=== PATIENT | male | born 1980 | race Caucasian/White ===

== ENCOUNTER 2022-03-05 09:26 | Emergency (ER) | payer MEDICAID, SELFPAY ==
--- NOTE | ~2022-03-05 | XR_ITS ---
XR knee RT 3V 03/05/2022 10:07 INDICATION: Knee pain. PROCEDURE: 3 views right knee COMPARISON: No prior studies for comparison. FINDINGS: Fracture, dislocation or subluxation is not identified. No significant joint effusion. The soft tissues appear within normal limits. No foreign bodies are identified. IMPRESSION: 1: NO ACUTE BONE OR JOINT ABNORMALITY IDENTIFIED. Reviewed, dictated and finalized at location A. NT CARE NURSE PRACTITIONER
[2022-03-05 09:44] VITALS: BP 147/98; PULSE 92; RESP 16; TEMP 37.1; O2SAT 100
--- NOTE | 2022-03-05 09:53 | ED.GENADULT ---
HPI - General Adult General Chief complaint: Extremity Injury, Lower Stated complaint: Right Knee,Leg,Ankle Pain Source: patient Mode of arrival: ambulatory Limitations: no limitations History of Present Illness HPI narrative: Patient presents for evaluation of pain, swelling, redness in the right lower extremity. He indicates his right knee was punctured by a screw approximately 2 weeks ago when he kneeled down while working. He states that the screw did puncture his skin. He did not have considerable pain or swelling at that time. Two days ago he woke up and noted swelling in the anterior aspect of the right knee without considerable pain. He has noted warmth in right knee and redness in anterior aspect of right lower leg. He does have some mild pain in his right heel when walking and also in anterior aspect of right lower leg. He denies any calf redness, swelling or pain. No personal or family hx of DVT. He believes his last tetanus shot was approximately five years ago. He rates pain in anterior aspect of right lower leg as 1-2 in severity. He took ibuprofen 800mg without considerable improvement thereafter. His father has had gout in past however pt has not. No fever, chills, nausea, vomiting. Related Data Home Medications Medication Instructions Recorded Confirmed No Home Medications 03/05/22 03/05/22 Allergies Allergy/AdvReac Type Severity Reaction Status Date / Time No Known Allergies Allergy Verified 03/05/22 09:43 Review of Systems Review of Systems: CONSTITUTIONAL: Denies fever, chills, or sweats. EYES: Denies visual changes, redness, or discharge. ENT: Denies rhinorrhea, congestion, sore throat, or otalgia. CARDIOVASCULAR: Denies chest pain, palpitations, or edema. RESPIRATORY: Denies cough or dyspnea. GASTROINTESTINAL: Denies abdominal pain, nausea, vomiting, or diarrhea. GENITOURINARY: Denies dysuria or hematuria. SKIN: Denies rash or itching. MUSCULOSKELETAL:Reports pain, swelling and redness in anterior aspect of right lower leg. Reports pain in right heel. Reports swelling in anterior aspect of right knee NEUROLOGIC: Denies headache, numbness, dizziness, or weakness. PSYCHIATRIC: Denies anxiety or depression. [facility] Past Medical History Medical History (Updated 03/05/22 @ 10:26 by Danial Haro, [employer], ) No pertinent past medical history Surgical History Surgical History No pertinent past surgical history Family History Family History Father Gout Social History Social History Smoking status: Former smoker Substance use: never Gender identity (if verbalized by the patient): Male Spiritual care concerns: No Exam Narrative: GENERAL: Well-appearing, well-nourished, and in no acute distress. HEAD: Normocephalic, atraumatic. EYES: PERRLA and EOMI. ENT: Nares clear, no rhinorrhea or epistaxis. Mucous membranes moist. Oropharynx without tonsillar hypertrophy exudate or other lesions. Bilateral TMs pearly stacy nonbulging NECK: Supple. No adenopathy or masses. No carotid bruits or JVD CHEST: Clear to auscultation. No respiratory distress. No wheezes rales or rhonchi HEART: Regular rate and rhythm. No murmur heard. Normal peripheral pulses. ABDOMEN: Soft, nontender, nondistended, normal active bowel sounds. EXTREMITIES: there is swelling and anterior aspect of the right knee and 1+ pitting edema in anterior aspect of the right lower leg. There is no posterior calf tenderness. There is tenderness noted in anterior aspect of right lower leg. Full ROM of right knee SKIN: There is erythema and warmth noted to anterior aspect of right lower leg NEURO: No focal deficits. Alert and oriented x3. PSYCH: Normal mood and affect. Course Course Emergency Course: This is the 42-year-old male
[2022-03-05] MEDS: TETANUS,DIPHTHERIA,AC PERTUSSIS ADULT (0.5 ML) BOOSTRIX IM (09:59)
== END 2022-03-05 10:31 | disposition short-term general hospital (02) ==
PROVIDERS: Emergency Provider Nurse Practitioner; PCP Emergency Medicine
DX: R22.41 Localized swelling, mass and lump, right lower limb (principal); Z23 Encounter for immunization; Z87.891 Personal history of nicotine dependence
CPT/HCPCS: 73562; 90471; 90715; 99203; G0463

== ENCOUNTER 2022-03-05 10:44 | Emergency (ER) | payer OTHER, SELFPAY ==
--- NOTE | ~2022-03-05 | US_ITS ---
EXAMINATION:US venous doppler LE RT INDICATION:Leg swelling. TECHNIQUE: Multiple grayscale, color flow and Doppler images of the right lower extremity deep venous systems were obtained and reviewed. COMPARISON:No prior studies for comparison. FINDINGS: The common femoral, superficial femoral and popliteal veins demonstrate normal respiratory variation, augmentation and compressibility. Color flow is also seen within the posterior tibial, pe roneal, greater saphenous and profunda veins. IMPRESSION: 1: No lower extremity deep venous thrombosis. Reviewed, dictated and finalized at location A. VERY ANALYST
[2022-03-05 11:23] VITALS: BP 136/101; PULSE 90; RESP 18; TEMP 37.1; O2SAT 100
--- NOTE | 2022-03-05 12:59 | ED.EXTPRO ---
HPI - Extremity Problem General Chief complaint: Extremity Problem,Nontraumatic Stated complaint: knee injury Time Seen by Provider: 03/05/22 11:55 History of Present Illness HPI Narrative: 41-year-old male presenting to the emergency department for evaluation of right anterior knee pain. Patient states earlier in the week he kneeled on a screw and states the screw went into his leg 1 to 2 mm. Patient states since then he has developed some knee effusion but denies any pain in the knee. Patient states he does have pain at his heel denies any injury or lower extremity. Patient did have follow-up with his primary care physician today and had an x-ray of the knee which showed no acute fracture or dislocation. Patient was referred to the emergency department for an ultrasound to evaluate for DVT. Patient has no prior history of DVT. Patient denies any fevers. Patient states the leg has been warm for him. Patient denies any localized erythema but does have edema and effusion of the knee. Patient denies any associated chest pain or shortness of breath. Patient denies any pertinent past medical history. Related Data Allergies Allergy/AdvReac Type Severity Reaction Status Date / Time No Known Allergies Allergy Verified 03/05/22 09:43 Review of Systems Review of Systems: CONSTITUTIONAL: Denies fever, chills, or sweats. EYES: Denies visual changes, redness, or discharge. ENT: Denies rhinorrhea, congestion, sore throat, or otalgia. CARDIOVASCULAR: Denies chest pain, palpitations, or edema. RESPIRATORY: Denies cough or dyspnea. GASTROINTESTINAL: Denies abdominal pain, nausea, vomiting, or diarrhea. GENITOURINARY: Denies dysuria or hematuria. SKIN: Denies rash or itching. MUSCULOSKELETAL: See HPI NEUROLOGIC: Denies headache, numbness, or weakness. [facility] Past Medical History Medical History (Updated 03/05/22 @ 13:06 by Brad Ballard MD) No pertinent past medical history Surgical History Surgical History No pertinent past surgical history Family History Family History Father Gout Social History Social History Smoking status: Former smoker Substance use: never Gender identity (if verbalized by the patient): Male Spiritual care concerns: No Exam Narrative: APPEARANCE: Well appearing, no pain, no distress, well-nourished. HEAD: normocephalic, atraumatic. EYES: PERRLA/EOMI, conjunctivae clear. NOSE: Normal no drainage EARS:TMS clear with good light reflex. THROAT: Pharynx clear, no exudate. NECK: Supple. No adenopathy, no masses. RESPIRATORY: Airway patent, respirations nonlabored. Clear to auscultation bilaterally, no rales, rhonchi, wheezing. CARDIOVASCULAR: Regular rate and rhythm without murmurs rubs or gallops. ABDOMINAL: Soft, nontender, nondistended, normal bowel sounds MUSCULOSKELETAL: Moves all extremities. Mild effusion at the right lateral knee. No overlying erythema. No tenderness to knee. No tenderness to proximal or distal posterior leg. NEURO: Alert. Cranial nerves II through XII intact. Grossly intact SKIN: Warm, dry. Normal Color Course Course Emergency Course: Ultrasound was negative for DVT. Patient tetanus was updated. Patient will be started on a short course of antibiotics. Patient was also encouraged of close follow-up with primary care physician and was also given follow-up for orthopedics. Vital Signs Vital signs: Vital Signs Temperature 98.7 F 03/05/22 11:23 Pulse Rate 90 03/05/22 11:23 Respiratory Rate 18 03/05/22 11:23 Blood Pressure 136/101 H 03/05/22 11:23 Pulse Oximetry 100 03/05/22 11:23 Oxygen Delivery Room Air 03/05/22 11:23 Temperature 98.7 F 03/05/22 11:23 Pulse Rate 87 03/05/22 13:50 Respiratory Rate 18 03/05/22 13:50 Blood Pressure 137/95 H 03/05
[2022-03-05] MEDS: CEPHALEXIN 500 MG CAPSULE PO (13:13)
[2022-03-05 13:50] VITALS: BP 137/95; PULSE 87; RESP 18; O2SAT 97
== END 2022-03-05 13:52 | disposition home or self-care (01) ==
PROVIDERS: Emergency Provider Emergency Medicine; PCP Emergency Medicine
DX: M25.461 Effusion, right knee (principal); Z87.891 Personal history of nicotine dependence
CPT/HCPCS: 93971; 99284; A9270

== ENCOUNTER 2023-01-24 08:40 | Emergency (ER) | payer OTHER, SELFPAY ==
[2023-01-24] VITALS (22 sets, daily range): BP systolic 124–153; BP diastolic 88–108; PULSE 66–90; RESP 11–22; TEMP 36.1–36.7; O2SAT 98–100
--- NOTE | ~2023-01-24 | CT_ITS ---
Non-contrast CT scan of the Abdomen and Pelvis Clinical indication: Hematuria Technique: 2.5 mm axial scans were obtained through the abdomen and pelvis without intravenous or or al contrast. Dose reduction technique was used on this scan by utilizing automated exposure control a nd iterative reconstruction technique. The dose-length product (DLP) was 736.68 mGy-cm. Findings: Images through the lung bases reveal 4 mm right middle lobe pulmonary nodule. There is no evidence of renal or ureteral calculi. The kidneys and the ureters are nondilated. The liver, spleen, pancreas, gallbladder, and adrenals appear normal. There is no aortic aneurysm. There is no evidence of bowel obstruction. Normal appendix. Images through the pelvis were performed. There is no evidence of ascites or lymphadenopathy. Urinary bladder unremarkable. Prostate gland and seminal vesicles are unremarkable. Impression: No acute abnormality. No etiology for hematuria identified. 4 mm right middle lobe pulmonary nodule. According to Fleischner Society criteria, for a low-risk pat ient, no further follow-up required. For a high-risk patient, 12 month follow-up CT could be consider ed. Reviewed, dictated and finalized at [facility]. Impression: No acute abnormality. No etiology for hematuria identified. 4 mm right middle lobe pulmonary nodule. According to Fleischner Society criter ia, for a low-risk patient, no further follow-up required. For a high-risk jose d ent, 12 month follow-up CT could be considered.
[2023-01-24 09:01] LABS: Basophils Percent Auto 0.6 % (0.2-1.2); Eosinophils Absolute Auto 0.1 K/mm3 (0-0.3); Hematocrit 50.3 % (42.0-52.0); Hemoglobin 16.4 g/dL (14.0-18.0); Immature Granulocyte Absolute 0.03 K/mm3 (0.00-0.031); Immature Granulocyte Percent A 0.5 % (0-0.5); Lymphocytes Absolute Auto 2.08 K/mm3 (0.9-3.2); Lymphocytes Percent Auto 32.4 % (18.3-44.2); Mean Corpuscular HGB Conc 32.6 g/dl (32-36); Mean Corpuscular Hemoglobin 30.3 pg (26-34); Mean Platelet Volume 11.6 fl (7.4-10.4); Monocytes Absolute Auto 0.6 K/mm3 (0.1-0.6); Monocytes Percent Auto 9.2 % (2.6-8.5); Neutrophils Absolute Auto 3.5 K/mm3 (1.3-6.7); Neutrophils Percent Auto 55.3 % (45.5-73.1); Platelet Count Result 180 k/mm3 (150-375); Red Blood Count 5.41 M/mm3 (4.6-6.20); Red Cell Distribution Width 13.5 % (11.5-14.5); White Blood Count 6.4 K/mm3 (4.5-10.0)
[2023-01-24 09:09] LABS: Alanine Aminotransferase 54 U/L (6-50); Albumin Level 5.1 g/dL (3.5-5.1); Alkaline Phosphatase 62 U/L (38-126); Anion Gap 10 mmol/L (8-16); Aspartate Amino Transferase 34 U/L (17-59); Bilirubin,Total 0.6 mg/dL (0.2-1.3); Blood Urea Nitrogen 20 mg/dL (9-20); Calcium 9.5 mg/dL (8.4-10.2); Carbon Dioxide 26 mmol/L (22-30); Chloride 103 mmol/L (98-107); Estimated CRCL calculation 97 ml/min; Estimated Glomerular Filt Rate > 60; Glucose 110 mg/dL (65-110); Potassium 4.3 mmol/L (3.4-5.0); Sodium 139 mmol/L (137-145)
[2023-01-24 09:10] LABS: INR 0.9; Prothrombin Time 12.7 Seconds (11.1-14.7)
[2023-01-24 09:11] LABS: Partial Thromboplastin Time 25.5 SECONDS (22.3-36.8)
--- NOTE | 2023-01-24 10:39 | ED.GENADULT ---
HPI - General Adult General Chief complaint: GI Bleed Stated complaint: hematuria, bloody stools Time Seen by Provider: 01/24/23 09:11 History of Present Illness HPI narrative: 42-year-old male presented the emergency department for evaluation of blood in his stool and blood in his urine. Patient states he does often have some blood in his stool when he wipes. Patient brought a photo showing blood streaked stool. Patient states that today he also had onset of blood in his urine. Patient denies any pain with this. Patient denies any difficulty starting urination. Patient has no prior history of kidney stones and patient has no prior history of urinary retention. Related Data Home Medications Medication Instructions Recorded Confirmed No Home Medications 05/19/22 05/19/22 Allergies Allergy/AdvReac Type Severity Reaction Status Date / Time No Known Allergies Allergy Verified 05/19/22 15:21 Review of Systems Review of Systems: All systems reviewed & are unremarkable except as noted in HPI and below PMFSH Past Medical History Medical History Dyslipidemia Migraine No pertinent past medical history Surgical History Surgical History History of vocal cord polypectomy (~2004) 2002 and 2004 Family History Family History Father Gout Malignant neoplasm of prostate Grandparent Malignant neoplasm of prostate Social History Social History Smoking status: Former smoker Smoking end date: 06/02/19 Alcohol intake: current Substance use: never Substance use type: does not use Lack of Transportation: No Lack of Food: Never True Current Housing: I Have Housing Concerned About Future Housing: No Difficulty Paying Gas/Electric Bills: No Difficulty Paying for Meds: No Currently Unemployed: No Education: High School Diploma/GED Difficulty w/ Childcare or Family Care: No Gender identity (if verbalized by the patient): Male Spiritual care concerns: No Exam Narrative: APPEARANCE: Well appearing, no pain, no distress, well-nourished. HEAD: normocephalic, atraumatic. EYES: PERRLA/EOMI, conjunctivae clear. NOSE: Normal no drainage NECK: Supple. No adenopathy, no masses. RESPIRATORY: Airway patent, respirations nonlabored. Clear to auscultation bilaterally, no rales, rhonchi, wheezing. CARDIOVASCULAR: Regular rate and rhythm without murmurs rubs or gallops. ABDOMINAL: Soft, nontender, nondistended, normal bowel sounds MUSCULOSKELETAL: Moves all extremities. Strength/ROM intact, No edema, No calf tenderness. NEURO: Alert. Cranial nerves II through XII intact. Good gait. Good coordination SKIN: Warm, dry. Normal Color PSYCHIATRIC: Normal affect/mood. Course Course Emergency Course: 42-year-old male present emergency department for evaluation of blood in his stool and blood in his urine. Patient's blood in his stool was streaked blood on the stool and patient states he has this intermittently. This is more consistent with a hemorrhoid. Patient's blood counts are normal patient has normal PT PTT. UA did show some microscopic blood. CT scan was ordered to evaluate for kidney stone and CT scan was negative. Patient continues to deny any complaints and patient was updated the results of his work-up. Patient was encouraged of close follow-up with GI for the recurrent blood in his stool and with urology for the hematuria. Suspect hemorrhoids as the underlying cause for the patient's blood in his stool. No evidence of infection or kidney stones to explain the etiology for his hematuria. Patient was encouraged of close follow-up with urology. Vital Signs Vital signs: Vital Signs Temperature 96.9 F L 01/24/23 08:44 Pulse Rate 77 01/24/23 08:44 Respirator
[2023-01-24 10:41] LABS: Bacteria Urine None Seen /hpf; Bilirubin Urine Negative (Negative); Blood Urine 3+ (Negative); Color Urine Yellow (Yellow); Glucose Urine UA Negative (Negative); Ketones Urine Negative (Negative); Leukocyte Esterase Ur Negative LEU/UL (Negative); Nitrate Urine Negative (Negative); Non Pathogenic Casts 0-2; Protein Urine Negative (Negative); RBC Urine >100 /hpf (0-2); Specific Grav Ur 1.024 (1.001-1.035); Squamous Epithelial Cell Urine None seen /hpf (Few); Urobilinogen Urine 0.2 mg/dL (<2.0); WBC Urine 0-5 /hpf
[2023-01-24 10:44] LABS: Appearance Urine Cloudy (Clear)
[2023-01-24 10:45] LABS: Add Urine Microscopic? YES
== END 2023-01-24 13:10 | disposition home or self-care (01) ==
PROVIDERS: Emergency Provider Emergency Medicine; PCP Family Medicine
DX: K92.1 Melena (principal); R31.9 Hematuria, unspecified; E78.5 Hyperlipidemia, unspecified
CPT/HCPCS: 36415; 74176; 80053; 81001; 85025; 85610; 85730; 86850; 86900; 86901; 99284

== ENCOUNTER 2023-09-01 08:02 | Emergency (ER) | payer OTHER, MEDICAID, SELFPAY ==
[2023-09-01 08:07] VITALS: BP 136/97; PULSE 74; RESP 16; TEMP 36.6; O2SAT 100
--- NOTE | 2023-09-01 08:09 | ED.EYEPROB ---
HPI - Eye Problem General Chief complaint: Eye Problems Stated complaint: Right Eye Time Seen by Provider: 09/01/23 08:10 Source: patient Mode of arrival: ambulatory Limitations: no limitations History of Present Illness HPI Narrative: 43 yo M presents with c/o redness and swelling to R upper eyelid. Symptoms started yesterday evening. During the day was painting his deck and a drop of stain flew into R eye. Did wash it out but states was rubbing at his eye throughout the day. Concerned he is getting a stye as he has had one in the past and it feels the same. No vision changes. All systems reviewed and negative except as noted above. Related Data Allergies Allergy/AdvReac Type Severity Reaction Status Date / Time No Known Allergies Allergy Verified 05/19/22 15:21 Review of Systems Review of Systems: CONSTITUTIONAL: Denies fever, chills, or sweats. EYES: Denies visual changes. Reports right eye upper eyelid redness and swelling. No discharge. ENT: Denies rhinorrhea, congestion, sore throat, or otalgia. CARDIOVASCULAR: Denies chest pain, palpitations, or edema. RESPIRATORY: Denies cough or dyspnea. GASTROINTESTINAL: Denies abdominal pain, nausea, vomiting, or diarrhea. GENITOURINARY: Denies dysuria or hematuria. SKIN: Denies rash or itching. MUSCULOSKELETAL: Denies back pain, joint pain, or myalgia. NEUROLOGIC: Denies headache, numbness, or weakness. PSYCHIATRIC: Denies anxiety or depression. All other systems reviewed are negative, except as documented in HPI. [facility] Past Medical History Medical History Dyslipidemia Migraine No pertinent past medical history Surgical History Surgical History History of vocal cord polypectomy (~2004) 2002 and 2004 Family History Family History Father Gout Malignant neoplasm of prostate Grandparent Malignant neoplasm of prostate Social History Social History Smoking status: Former smoker Smoking end date: 06/02/19 Alcohol intake: current Substance use: never Substance use type: does not use Lack of Transportation: No Lack of Food: Never True Current Housing: I Have Housing Concerned About Future Housing: No Difficulty Paying Gas/Electric Bills: No Difficulty Paying for Meds: No Currently Unemployed: No Education: High School Diploma/GED Difficulty w/ Childcare or Family Care: No Gender identity (if verbalized by the patient): Male Spiritual care concerns: No Comments At time of signature, agree with nursing past medical, surgical, social and family history. There is no relevant family history pertinent to the presenting complaint. Exam Narrative: GENERAL: This is a well-nourished, well-developed patient, in no apparent distress. HEAD: normocephalic, atraumatic. EYES: PERRL. Sclera clear/white. erythema and mild swelling to R upper eyelid without pustule. tenderness on palpation. EARS: External ears normal NOSE: External nose normal NECK: Neck supple, non-tender without lymphadenopathy, masses or thyromegaly. CARDIOVASCULAR: Regular rate and rhythm without murmurs, gallops, or rubs. RESPIRATORY: Clear to auscultation. Breath sounds equal bilaterally. No wheezes, rales, or rhonchi. SKIN: warm, Dry, intact with no suspicious lesions or rash, good texture and turgor. NEURO: awake, alert, and oriented to person, place and time. There were no obvious focal neurologic abnormalities. EXTREMITIES: No joint tenderness, effusion, or edema noted. Course Course Level of Care: Express Care Visit Vital Signs Vital signs: Reviewed MDM - Eye Problem MDM Narrative Medical decision making narrative: Patient is aware of diagnosis, understands and agrees to treatment plan. Anticipatory guidance given. Dilma
== END 2023-09-01 08:28 | disposition home or self-care (01) ==
PROVIDERS: Emergency Provider Nurse Practitioner Family; PCP Emergency Medicine
DX: H01.9 Unspecified inflammation of eyelid (principal); Z87.891 Personal history of nicotine dependence; E78.5 Hyperlipidemia, unspecified
CPT/HCPCS: 99213; G0463